=== PATIENT | female | born 1990 | race Two or more races ===

== ENCOUNTER 2021-07-06 12:09 | Inpatient (IN) | payer OTHER ==
[~2021-07-06] VITALS: Ht 165.1 cm; Wt 0.5 kg
[2021-07-27] MEDS ORDERED: PRENATAL TABLE1 EAC3 PO (20:51)
[2021-07-31] MEDS ORDERED: IBUPROFEN800 MG PO (08:03)
== END 2021-07-31 14:11 | disposition home or self-care (01) | DRG 788 ==
LOC: LDR 07-27 20:34 → OB/GYN 07-27 20:34
PROVIDERS: ADMIT Specialist; ATTEND Specialist
PROC: 4A1HXCZ Monitoring of Products of Conception, Cardiac Rate, External Approach (ICD-10-PCS; 2021-07-27)
PROC: 10D00Z1 Extraction of Products of Conception, Low, Open Approach (ICD-10-PCS; principal; 2021-07-28 07:00)
DX: O36.63X0 Maternal care for excessive fetal growth, third trimester, not applicable or unspecified (principal); O76 Abnormality in fetal heart rate and rhythm complicating labor and delivery; Z3A.40 40 weeks gestation of pregnancy; Z37.0 Single live birth; Z20.822 Contact with and (suspected) exposure to COVID-19